=== PATIENT | male | born 1975 | race Caucasian/White ===

== ENCOUNTER 2025-10-05 09:21 | Emergency (ER) | payer BC, SELFPAY ==
[2025-10-05 09:30] VITALS: BP 131/88
[2025-10-05 10:28] VITALS: BP 130/86; BMI 24.1
[2025-10-05 11:00] VITALS: BP 123/82
--- NOTE | 2025-10-05 11:16 | ED.GENMED ---
History of Present Illness
General
Chief Complaint: Heart Rate Problem
Source: patient and spouse
Exam Limitations: none
Time Seen by Provider: 10/05/25 10:32
Nursing documentation reviewed up to this point in time: agreed with
History of Present Illness
History of Present Illness:
50-year-old male presents with palpitations for an hour this morning from 7-8 o'clock, irregular beat his chest some fullness into his throat, but no chest pain no shortness of breath no fever chills no nausea no vomiting no syncope similar in the
past never this severe or lasting only few seconds, saw a cat swamper through [place] a few years ago had a stress test which was negative nondrinker non-smoker, did have some tea last evening now is feeling fine does admit to some anxiety
related to the move into a new house where there is mold
Past History
Past History
ED Past Medical History: Other (stromal tumor removal)
ED Past Surgical History: Other (stromal tumor removal)
Social History
Tobacco: Non-smoker
Alcohol: None
Drug: None
Personal:
Living: with family
Employment: Employed
Family History
Family History: Negative Early CAD or Sudden
Phy Exam
Physical Exam
Physical Exam:
Physical Exam
General: no apparent distress, not acutely ill
Neck: No apparent goiter
Heart: s1/s2 regular rate and rhythm, no murmur. equal radial pulses.
Lungs: no acute respiratory distress. clear bilaterally
Abdomen: Nontender
Neuro: alert and oriented. no focal neurological deficits
Skin: no rash
Psychiatric: well kept. interactive and cooperative
Extremities: no edema. no calf tenderness.
Course
Orders/Labs/Results
Orders:
Orders
10/05/25 09:34
Electrocardiogram (*1) Urgent
Reason for Study: Bradycardia / Tachycardia
EKG- Treatment ONCE
10/05/25 11:06
Cardiac Monitoring- Treatment ONCE
10/05/25 11:15
Complete Blood Count/With Diff Urgent
Comprehensive Metabolic Panel Urgent
Magnesium Urgent
TSH Urgent
Troponin I Urgent
Abnormal Lab Results
10/05/25
11:15
BUN 23 H mg/dl
(9-20)
10/05/25 11:15
10/05/25 11:15
Vital Signs
Initial and Last Documented VS:
Initial Vital Signs
Temp Pulse Resp BP Pulse Ox
97.6 F 78 18 131/88 97
10/05/25 09:30 10/05/25 09:30 10/05/25 09:30 10/05/25 09:30 10/05/25 09:30
Last Documented Vital Signs
Temp Pulse Resp BP Pulse Ox
97.6 F 67 9 123/82 98
10/05/25 09:30 10/05/25 11:45 10/05/25 11:45 10/05/25 11:00 10/05/25 11:45
MDM/Problems Addressed
Differential Diagnosis Includes:
PVCs PACs A-fib A. tach other arrhythmia
MDM/Problems Addressed:
Palpitation
*Pulse Oximetry
SaO2: 100
Oxygen Mode of Delivery: Room air
Patient hypoxic: no
*Court Magistrate Interpretation
Rate: normal
Interpretation: normal
Heart Rate: 78
Rhythm: sinus
*Critical Care Note
Total Time (30-74mins, 75-104mins- exclusive of procedures): Not Applicable
Update Note
Update Note:
Update patient asymptomatic now will check electrolytes keep on records administrator check TSH
12 noon labs noted TSH pending no arrhythmia on telemetry
ED Attending Note
-
Portions of this chart may have been created with voice recognition software.� Occasional wrong word or��sound alike� substitutions may have occurred due to the inherent limitations of voice recognition software.
Discharge Plan
Departure
Prescriptions:
No Action
multivitamin Tablet
1 tab PO DAILY
famotidine 20 mg Tablet
20 mg PO DAILY
Referrals:
Archie Panda DO [Family Provider, Family Practice]
Interventions
Interventions:
*General Assessment Last Done: 10/05/25 10:31
*Neglect/Abuse Screening Last Done: 10/05/25 10:31
*ED COVID-19 Vaccine History Last Done: 10/05/25 09:30
*ED Influenza Vaccine History Last Done: 10/05/25 09:34
[facility] Fall Risk Assessment Tool Last Done: 10/05/25 10:29
*Risk Screen - Suicide (C-SSRS) Last Done: 10/05/25 09:30
ED- Cardiac Assessment Last Done: 10/05/25 10:32
ED- Pulmonary Assessment Last Done: 10/05/25 10:32
Discharge Date and Time
Print Language: DUTCH
[2025-10-05 11:24] LABS: Hematocrit 43.0 % (39.0-52.0); Hemoglobin 14.9 g/dL (13.0-18.0); Mean Corp Hgb Conc. 34.7 g/dL (33.0-37.0); Mean Corpuscular Volume 86.9 fL (80.0-94.0); Nucleated Red Blood Cells % 0 % (-); Platelet Count 204 10^3/uL (130-400); Red Cell Dist. Width 12.9 % (11.5-14.5)
[2025-10-05 11:37] LABS: ALT (SGPT) 31 U/L (0-50); AST (SGOT) 30 U/L (17-59); Albumin 4.3 g/dl (3.5-5.0); Alkaline Phosphatase 54 U/L (38-126); Blood Urea Nitrogen 23 mg/dl (9-20); Calcium 9.4 mg/dl (8.4-10.2); Carbon Dioxide 28 mmol/L (22-30); Chloride 105 mmol/L (98-107); Estimated Creatinine Clearance 90 ml/min; Glucose 95 mg/dl (70-99); Magnesium 2.2 mg/dl (1.6-2.3); Potassium 4.9 mmol/L (3.5-5.1); Sodium 136 mmol/L (135-145); Total Protein 7.0 g/dl (6.3-8.2); eGFR > 60.00
[2025-10-05 11:49] LABS: Troponin I < 0.012 ng/ml
[2025-10-05 12:00] VITALS: BP 111/69
[2025-10-05 12:34] LABS: TSH 1.15 uIU/ml (0.47-4.68)
== END 2025-10-05 12:20 | disposition home or self-care (01) ==
LOC: EMR 09:21
PROVIDERS: EMERGENCY PHYSICIAN Emergency Medicine; FAMILY PHYSICIAN Family Medicine
DX: R00.2 Palpitations (principal); Z59.19 Other inadequate housing
CPT/HCPCS: 99284; 80053; 83735; 84443; 84484; 85025; 93005